=== PATIENT | male | born 1955 | race Caucasian/White ===

== ENCOUNTER 2019-01-08 06:47 | Emergency (ER) | payer OTHER ==
[2019-01-08] MEDS ORDERED: ENOXAPARIN 100 MG/ML SYR SQ ONE (07:09)
[2019-01-08] MEDS ORDERED: METOPROLOL TARTRATE 5 MG/5 ML INJ IV ONE (07:10)
[2019-01-08 07:23] LABS: Absolute Lymphocytes (CBC) 1.8 K/uL (0.7-4.9); Basophils % 1.2 % (0-1.3); Hematocrit 45.3 % (39.6-49.0); Lymphocytes % 30.7 % (15.3-44.8); MPV 8.3 fL (7.6-11.3); RBC Red Blood Cell Count 4.83 M/uL (4.33-5.43)
[2019-01-08 07:32] LABS: Protime INR 0.95
[2019-01-08 07:45] LABS: ALT/SGPT 36 U/L (12-78); AST/SGOT 18 U/L (15-37); Albumin 4.2 g/dL (3.4-5.0); Alkaline Phosphatase 33 U/L (45-117); BUN Blood Urea Nitrogen 19 mg/dL (7-18); Bicarbonate 27 mmol/L (21-32); Bilirubin Direct 0.2 mg/dL (0-0.2); Bilirubin Total 0.6 mg/dL (0.2-1.0); Glucose Level 113 mg/dL (74-106); Magnesium 2.3 mg/dL (1.8-2.4); NT PRO-BNP 367 pg/mL (<125); Potassium 3.7 mmol/L (3.5-5.1); Protein, Total 7.6 g/dL (6.4-8.2); Sodium Level 138 mmol/L (136-145); Troponin (Emerg Dept Use Only) < 0.02 ng/mL (0.0-0.045)
--- NOTE | 2019-01-08 07:55 | ER ---
Nurse's Notes [facility] Name: Artur Rodrigues Jr Age: 63 yrs Sex: Male : 1955 Arrival Date: 01/08/2019 Time: 06:48 Bed 5 Private MD: Diagnosis: Atrial fibrillation and flutter Presentation: 01/08 06:57 Presenting complaint: Patient states: he has felt as if his heart was beating aa1 irregularly since yesterday. Denies hx of AF. Denies CP or SOB. Transition of care: patient was not received from another setting of care. Onset of symptoms was January 07, 2019. Risk Assessment: Do you want to hurt yourself or someone else? Patient reports no desire to harm self or others. Initial Sepsis Screen: Does the patient meet any 2 criteria? HR > 90 bpm. Does the patient have a suspected source of infection? No. Patient's initial sepsis screen is negative. Care prior to arrival: None. 06:57 Method Of Arrival: Ambulatory aa1 06:57 Acuity: AKI 2 aa1 Triage Assessment: 07:08 General: Appears in no apparent distress. comfortable, Behavior is calm, cooperative, aa1 appropriate for age. Pain: Denies pain. Historical: - Allergies: 07:08 No Known Allergies; aa1 - Home Meds: 07:08 Lisinopril Oral [Active]; amlodipine oral [Active]; Pravachol Oral [Active]; aa1 - PMHx: 07:08 High Cholesterol; Hypertension; aa1 - PSHx: 07:08 Carpal Tunnel Repair; aa1 - Immunization history:: Adult Immunizations. - Social history:: Smoking status: . - Ebola Screening: : Patient denies travel to an Ebola-affected area in the 21 days before illness onset. Screenin:03 Abuse screen: Denies threats or abuse. Nutritional screening: No deficits noted. tw2 Tuberculosis screening: No symptoms or risk factors identified. Fall Risk None identified. Assessment: 07:14 General: Appears in no apparent distress. well groomed, well developed, well nourished, sg Behavior is calm, cooperative, appropriate for age. Pain: Denies pain. Neuro: Level of Consciousness is awake, alert, obeys commands, Oriented to person, place, time, Motor Scooter Repairer are equal bilaterally Speech is normal, Facial symmetry appears normal. Cardiovascular: Capillary refill is brisk in bilateral fingers Patient's skin is warm and dry. Chest pain is denied. Cardiovascular: Reports palpitations. Respiratory: Airway is patent Respiratory effort is even, unlabored, Respiratory pattern is regular, symmetrical. GI: Abdomen is round non-distended, Reports normal bowel habits, tolerance of fluids, tolerance of food. : No signs and/or symptoms were reported regarding the genitourinary system. EENT: No signs and/or symptoms were reported regarding the EENT system. Derm: Skin is pink, warm \T\ dry. Musculoskeletal: Circulation, motion, and sensation intact. Range of motion: intact in all extremities, Swelling absent. 08:11 Reassessment: Marcial Lynn NP at bedside discussing results plan of care/admission ss with patient. 08:13 Reassessment: Patient appears in no apparent distress at this time. Patient and/or sg family updated on plan of care and expected duration. Pain level reassessed. Patient is alert, oriented x 3, equal unlabored respirations, skin warm/dry/pink. 08:36 Reassessment: Personnel Administrator at bedside for ECHO at this time. sg 09:17 Reassessment: Patient appears in no apparent distress at this time. Patient and/or sg family updated on plan of care and expected duration. Pain level reassessed. Patient is alert, oriented x 3, equal unlabored respirations, skin warm/dry/pink. Patient denies pain at this time. Patient states feeling better. Vital Signs: 07:08 BP 150 / 78; Pulse 114; Resp 18; Temp 98.5; Pulse Ox 98% on R/A; Weight 95.25 kg; aa1 Height 6 ft. 2 in. (187.96 cm); Pain 0/10; 07:10 BP 150 / 78; Pulse 134 MON; Resp 17; Pulse Ox 100% on R/A; sg 07:22 BP 134 / 84; Pulse 96 MON; Resp 16 S; Pulse Ox 99% on R/A; Pain 0/10; sg 08:07 BP 118 / 72; Pulse 99; Resp 17; Pulse Ox 98% on R/A; sg 09:17 BP 111 / 82; Pulse 104; Resp 17; Pulse Ox 100% on R/A; Pain 0/10; sg 07:08 Body Mass Index 26.96 (95.25 kg, 187.96 cm) aa1 07:10 A fib sg 07:22 A fib sg ED Course: 06:48 Patient arrived in ED. am2 06:49 Marcial Lynn NP is PHCP. pm1 06:49 Gary Crook MD is Attending Physician. pm1 06:54 Delbert Bermudez, RN is Primary Nurse. sg 07:04 Bed in low position. court recording monitor on. Pulse ox on. NIBP on. tw2 07:04 Arm band placed on. tw2 07:06 Initial lab(s) drawn, by ED staff, sent to lab. Inserted saline lock: 20 gauge in right sg antecubital area, using aseptic technique. Blood collected. 07:07 Triage completed. aa1 07:11 X-ray completed. Portable x-ray completed in exam room. Patient tolerated procedure jb2 well. 07:12 XRAY Chest (1 view) In Process Unspecified. EDMS 07:54 Slime Ferreira MD is Hospitalizing Provider. pm1 08:01 Annita Leroy MD is Hospitalizing Provider. pm1 08:40 Awaiting bed assignment, Awaiting radiology results. sg 09:26 Sandeep Bates MD is Referral Physician. pm1 10:28 EKG done, by property maintenance technician. reviewed by Marcial Lynn NP. dt2 10:30 No provider procedures requiring assistance completed. IV discontinued, intact, sg bleeding controlled, No redness/swelling at site. Pressure dressing applied. Administered Medications: 07:10 Drug: Metoprolol 5 mg Route: IVP; Site: right antecubital; sg 08:20 Drug: NS 0.9% 1000 ml Route: IV; Rate: 1000 ml; Site: right antecubital; sg 09:15 Drug: Metoprolol 25 mg Route: PO; sg 09:15 Drug: Aspirin 81 mg Route: PO; sg 09:19 Drug: Lovenox 1 mg/kg Route: Sub-Q; Site: right lower abdomen; sg Outcome: 07:54 Decision to Hospitalize by Provider. pm1 09:27 Discharge ordered by . pm1 10:20 Discharged to home ambulatory, with family. sg 10:20 Condition: good 10:20 Discharge instructions given to patient, Instructed on discharge instructions, follow up and referral plans. safety practices, Demonstrated understanding of instructions, follow-up care, medications, Prescriptions given X 2. 10:41 Patient left the ED. ss Signatures: Dispatcher [employer] EDMS Delbert Bermudez RN RN Shantel Bliss RN RN aa1 Woody Santos jb2 Silvia Velázquez RN RN ss Marcial Lynn, PROCESSOR INSPECTOR PROCESSOR INSPECTOR pm1 Earnestine Jacobs RN RN tw2 Nevin Amador am2 Candace Stevens dt2 Corrections: (The following items were deleted from the chart) 10:28 10:28 EKG done, by property maintenance technician. reviewed by Gary Crook MD dt2 dt2
--- NOTE | 2019-01-08 07:55 | EDPHYS ---
Physician Documentation [facility] Name: Artur Rodrigues Jr Age: 63 yrs Sex: Male : 1955 Arrival Date: 01/08/2019 Time: 06:48 Bed 5 Private MD: ED Physician Gary Crook HPI: 01/08 07:10 This 63 yrs old Male presents to ER via Ambulatory with complaints of pm1 irregular heartbeat. 07:10 The patient presents with a history of irregular heart beat. Context: The symptoms pm1 occur at rest, without known cause. Onset: The symptoms/episode began/occurred yesterday. Duration: The patient or guardian reports multiple episodes. Modifying factors: The symptoms are aggravated by nothing. The symptoms are alleviated by nothing. Associated signs and symptoms: Pertinent positives: Dizziness and sweating, Pertinent negatives: chest pain, cough, nausea, SOB, syncope, vomiting. Severity of symptoms: in the emergency department the symptoms are unchanged Pain is currently a 0 / 10. The patient has not experienced similar symptoms in the past. The patient has not recently seen a physician, out of town. Historical: - Allergies: 07:08 No Known Allergies; aa1 - Home Meds: 07:08 Lisinopril Oral [Active]; amlodipine oral [Active]; Pravachol Oral [Active]; aa1 - PMHx: 07:08 High Cholesterol; Hypertension; aa1 - PSHx: 07:08 Carpal Tunnel Repair; aa1 - Immunization history:: Adult Immunizations. - Social history:: Smoking status: . - Ebola Screening: : Patient denies travel to an Ebola-affected area in the 21 days before illness onset. ROS: 07:10 Constitutional: Negative for fever, chills, and weight loss, Eyes: Negative for injury, pm1 pain, redness, and discharge, ENT: Negative for injury, pain, and discharge, Neck: Negative for injury, pain, and swelling. 07:10 Respiratory: Negative for shortness of breath, cough, wheezing, and pleuritic chest pain, Abdomen/GI: Negative for abdominal pain, nausea, vomiting, diarrhea, and constipation, Back: Negative for injury and pain, : Negative for injury, bleeding, discharge, and swelling, MS/Extremity: Negative for injury and deformity, Skin: Negative for injury, rash, and discoloration. 07:10 Cardiovascular: Positive for palpitations, Negative for chest pain, edema. 07:10 Neuro: Positive for dizziness, Negative for headache, numbness, tingling, weakness. Exam: 07:10 Constitutional: This is a well developed, well nourished patient who is awake, alert, pm1 and in no acute distress. Head/Face: Normocephalic, atraumatic. Eyes: Pupils equal round and reactive to light, extra-ocular motions intact. Lids and lashes normal. Conjunctiva and sclera are non-icteric and not injected. Cornea within normal limits. Periorbital areas with no swelling, redness, or edema. ENT: Nares patent. No nasal discharge, no septal abnormalities noted. Tympanic membranes are normal and external auditory canals are clear. Oropharynx with no redness, swelling, or masses, exudates, or evidence of obstruction, uvula midline. Mucous membranes moist. Neck: Trachea midline, no thyromegaly or masses palpated, and no cervical lymphadenopathy. Supple, full range of motion without nuchal rigidity, or vertebral point tenderness. No Meningismus. Chest/axilla: Normal chest wall appearance and motion. Nontender with no deformity. No lesions are appreciated. 07:10 Respiratory: Lungs have equal breath sounds bilaterally, clear to auscultation and percussion. No rales, rhonchi or wheezes noted. No increased work of breathing, no retractions or nasal flaring. Abdomen/GI: Soft, non-tender, with normal bowel sounds. No distension or tympany. No guarding or rebound. No evidence of tenderness throughout. Back: No spinal tenderness. No costovertebral tenderness. Full range of motion. Skin: Warm, dry with normal turgor. Normal color with no rashes, no lesions, and no evidence of cellulitis. MS/ Extremity: Pulses equal, no cyanosis. Neurovascular intact. Full, normal range of motion. 07:10 Cardiovascular: Rate: tachycardic, actual rate is 127 bpm, Rhythm: irregular, Pulses: no pulse deficits are appreciated, Heart sounds: normal, Edema: is not appreciated. 07:10 Neuro: Orientation: is normal, Motor: is normal, moves all fours, Sensation: is normal, no obvious gross deficits, Gait: is steady, at a normal pace, without difficulty. Vital Signs: 07:08 BP 150 / 78; Pulse 114; Resp 18; Temp 98.5; Pulse Ox 98% on R/A; Weight 95.25 kg; aa1 Height 6 ft. 2 in. (187.96 cm); Pain 0/10; 07:10 BP 150 / 78; Pulse 134 MON; Resp 17; Pulse Ox 100% on R/A; sg 07:22 BP 134 / 84; Pulse 96 MON; Resp 16 S; Pulse Ox 99% on R/A; Pain 0/10; sg 08:07 BP 118 / 72; Pulse 99; Resp 17; Pulse Ox 98% on R/A; sg 09:17 BP 111 / 82; Pulse 104; Resp 17; Pulse Ox 100% on R/A; Pain 0/10; sg 07:08 Body Mass Index 26.96 (95.25 kg, 187.96 cm) aa1 07:10 A fib sg 07:22 A fib sg MDM: 06:52 Patient medically screened. [facility] 07:13 Data reviewed: vital signs. Data interpreted: Pulse oximetry: on room air is 100 %. pm1 Interpretation: normal. 07:53 Counseling: I had a detailed discussion with the patient and/or guardian regarding: the pm1 historical points, exam findings, and any diagnostic results supporting the discharge/admit diagnosis, lab results, radiology results, the need for further work-up and treatment in the hospital. 08:05 Physician consultation: Annita Leroy MD was called at 08:05, was contacted at 08:05, pm1 regarding admission, patient's condition, would like further tests performed, echocardiogram, She will consult with Andrea Bates. 09:22 Physician consultation: Annita Leroy MD She discussed patient with Dr. Bates and he pm1 will see him at the office on Sunday01/10/2019 at 0930. Wants discharged home with metoprolol 25 mg PO BID and Lovenox 100 mg SQ BID. 01/08 07:00 Order name: Basic Metabolic Panel; Complete Time: 07:45 pm1 08 07:00 Order name: CBC with Diff; Complete Time: 07:31 pm1 08 07:00 Order name: LFT's; Complete Time: 07:45 pm1 08 07:00 Order name: Magnesium; Complete Time: 07:45 pm1 08 07:00 Order name: NT PRO-BNP; Complete Time: 07:45 pm1 08 07:00 Order name: PT-INR; Complete Time: 07:36 pm1 08 07:00 Order name: Troponin (emerg Dept Use Only); Complete Time: 07:45 pm1 08 07:00 Order name: XRAY Chest (1 view); Complete Time: 09:10 pm1 01/08 07:00 Order name: TSH; Complete Time: 07:45 pm1 01/08 08:10 Order name: Echo w/ Doppler pm1 01/08 07:00 Order name: EKG; Complete Time: 07:01 pm1 08 07:00 Order name: Cardiac monitoring; Complete Time: 07:03 pm1 08 07:00 Order name: EKG - Nurse/Tech; Complete Time: 07:03 pm1 08 07:00 Order name: IV Saline Lock; Complete Time: 07:11 pm1 08 07:00 Order name: Labs collected and sent; Complete Time: 07:11 pm1 08 07:00 Order name: O2 Per Protocol; Complete Time: 07:11 pm1 08 07:00 Order name: O2 Sat Monitoring; Complete Time: 07:11 pm1 EC:09 Rate is 127 beats/min. Rhythm is irregular, A fib. No Q waves. T waves are Normal. No pm1 ST changes noted. Clinical impression: Atrial Fibrillation. 10:03 Rate is 99 beats/min. Rhythm is irregular, A fib. No Q waves. T waves are Normal. No ST pm1 changes noted. Clinical impression: Atrial Fibrillation. Administered Medications: 07:10 Drug: Metoprolol 5 mg Route: IVP; Site: right antecubital; sg 08:20 Drug: NS 0.9% 1000 ml Route: IV; Rate: 1000 ml; Site: right antecubital; sg 09:15 Drug: Metoprolol 25 mg Route: PO; sg 09:15 Drug: Aspirin 81 mg Route: PO; sg 09:19 Drug: Lovenox 1 mg/kg Route: Sub-Q; Site: right lower abdomen; sg Disposition: 01/09 08:22 Co-signature as Attending Physician, Gary Crook MD I agree with the assessment and annmarie plan of care. Disposition: 01/08/19 09:27 Discharged to Home. Impression: Atrial fibrillation and flutter. - Condition is Stable. - Discharge Instructions: Atrial Fibrillation. - Prescriptions for Lovenox 100 mg/mL Subcutaneous Syringe - inject 1 milligram per kilogram by SUBCUTANEOUS route every 12 hours; 14 Syringe. Metoprolol Tartrate 25 mg Oral Tablet - take 1 tablet by ORAL route every 12 hours with a meal; 20 tablet. - Work release form, Medication Reconciliation Form, Thank You Letter, Antibiotic Education, Prescription Opioid Use form. - Follow up: Sandeep Bates MD; When: 01/10/2019 at 0930; Reason: Recheck today's complaints, Continuance of care, Re-evaluation by your physician. - Problem is new. - Symptoms have improved. Signatures: Dispatcher [employer] EDMS Delbert Bermudez RN RN sg Shantel Bliss RN RN aa1 Gary Crook MD MD cha Smirch, Shelby, RN RN ss Marcial Lynn NP ENVIRONMENTAL PROTECTION INSPECTOR pm1 Earnestine Jacobs RN RN tw2 Corrections: (The following items were deleted from the chart) 01/08 08:01 07:54 Hospitalization Ordered by Slime Ferreira MD for Inpatient Admission. Preliminary pm1 diagnosis is Atrial fibrillation and flutter - new onset. Bed requested for Telemetry/MedSurg (Inpatient). Status is Inpatient Admission. Condition is Stable. Problem is new. Symptoms have improved. UTI on Admission? No. pm1 09:26 08:01 01/08/2019 07:54 Hospitalization Ordered by Annita Leroy MD for Inpatient pm1 Admission. Preliminary diagnosis is Atrial fibrillation and flutter - new onset. Bed requested for Telemetry/MedSurg (Inpatient). Status is Inpatient Admission. Condition is Stable. Problem is new. Symptoms have improved. UTI on Admission? No. pm1 10:41 09:27 01/08/2019 09:27 Discharged to Home. Impression: Atrial fibrillation and flutter. ss Condition is Stable. Forms are Medication Reconciliation Form, Thank You Letter, Antibiotic Education, Prescription Opioid Use. Follow up: Sandeep Bates; When: 01/10/2019 at 0930; Reason: Recheck today's complaints, Continuance of care, Re-evaluation by your physician. Problem is new. Symptoms have improved. pm1
[2019-01-08] MEDS ORDERED: NA CHLORIDE 0.9% 1,000 ML ONE (08:22)
--- NOTE | 2019-01-08 08:45 | ECHO ---
HEIGHT: 6 ft 2 in WEIGHT: 210 lb oz DATE OF STUDY: 01/08/[address]: Marcial Lynn NP 2-DIMENSIONAL: YES M.MODE: YES DOPPLER: YES COLOR FLOW: YES TDS: NO PORTABLE: NO DEFINITY: NO BUBBLE STUDY: NO DIAGNOSIS: NEW ONSET ATRIAL FIBRILLATION CARDIAC HISTORY: CATHERIZATION: NO SURGERY: NO PROSTHETIC VALVE: NO PACEMAKER: NO MEASUREMENTS (cm) DIASTOLIC (NORMALS) SYSTOLIC (NORMALS) IVSd 1.0 (0.6-1.2) LA Diam 3.2 (1.9-4.0) LVEF 60-69% LVIDd 3.4 (3.5-5.7) LVIDs 2.5 (2.0-3.5) %FS 27% LVPWd 1.1 (0.6-1.2) Ao Diam 2.4 (2.0-3.7) 2 DIMENSIONAL ASSESSMENT: RIGHT ATRIUM: NORMAL LEFT ATRIUM: NORMAL RIGHT VENTRICLE: NORMAL LEFT VENTRICLE: NORMAL TRICUSPID VALVE: NORMAL MITRAL VALVE: NORMAL PULMONIC VALVE: NORMAL AORTIC VALVE: NORMAL PERICARDIAL EFFUSION: NONE AORTIC ROOT: NORMAL LEFT VENTRICULAR WALL MOTION: NORMAL DOPPLER/COLOR FLOW: NORMAL. COMMENTS: NORMAL 2D ECHO WITH DOPPLER. ATRIAL FIBRILLATION TECHNOLOGIST: CORIE MARQUEZ
--- NOTE | 2019-01-08 08:50 | RAD REPORT ---
EXAM DESCRIPTION: RAD - Chest Single View - 01/08/2019 7:13 am CLINICAL HISTORY: Palpitations, arrhythmia COMPARISON: None. TECHNIQUE: AP portable chest image was obtained 0714 hours . FINDINGS: No focal lung parenchymal process. No failure or volume overload. Heart and vasculature ar e normal. No measurable pleural effusion and no pneumothorax. No acute bony abnormality seen. No acut e aortic findings suspected. IMPRESSION: No acute cardiopulmonary process.
[2019-01-08] MEDS ORDERED: METOPROLOL TAR 25 MG TAB ONE (09:18)
[2019-01-08] MEDS ORDERED: ASPIRIN 81 MG CHEWABLE TABLET ONE (09:18)
--- NOTE | 2019-01-08 09:20 | EKG ---
Test Date: 2019-01-08 Test Time: 07:00:38 Reporting Consultant: JR MEASUREMENT RESULTS: Intervals: Rate: 127 UT: QRSD: 92 QT: 306 QTc: [address] [place]: P: UT: QRS: 92 T: 31 INTERPRETIVE STATEMENTS: Atrial fibrillation with rapid ventricular response Rightward axis Abnormal ECG No previous ECG available for comparison Electronically Signed On 01-08-19 09:19:44 CDT by Sandeep Bates
--- NOTE | 2019-01-08 12:19 | EKG ---
Test Date: 2019-01-08 Test Time: 09:59:18 Color Strainer: SUNITA/Francois MEASUREMENT RESULTS: Intervals: Rate: 99 NM: QRSD: 90 QT: 340 QTc: [address] [place]: P: NM: QRS: 100 T: 58 INTERPRETIVE STATEMENTS: Atrial fibrillation Rightward axis Abnormal ECG Electronically Signed On 01-08-19 12:18:29 CDT by Sandeep Bates
== END 2019-01-08 10:41 | disposition home or self-care (01) ==
LOC: ER 06:47
DX: I48.91 Unspecified atrial fibrillation (principal); I48.92 Unspecified atrial flutter; E78.00 Pure hypercholesterolemia, unspecified; I10 Essential (primary) hypertension
CPT/HCPCS: 93005 ×2; 93306; 85025; 80048; 36415; 83735; 85610; 80076; 84443; 84484; 83880; 71045; 96372; 96374; 99285; J1650; J7030